=== PATIENT | male | born 1945 | race Caucasian/White ===

== ENCOUNTER → 2020-10-05 14:08 | Outpatient (BNVA) | payer MEDICARE, OTHER, SELFPAY | PROVIDERS: PCP Internal Medicine; Visit Provider Urology | DX: Z76.89 Persons encountering health services in other specified circumstances (principal) | CPT/HCPCS: Q3014 ==

== ENCOUNTER 2021-02-19 13:28 | Outpatient (REF) | payer MEDICARE, OTHER, SELFPAY ==
[2021-02-19 17:29] LABS: Blood Urea Nitrogen 19 mg/dL (9-16); Estimated Glomerular Filt Rate 56
[2021-02-19 17:52] LABS: Prostate Specific Antigen 1.16 ng/mL (<0.05-4.0)
== END 2021-02-19 13:29 | disposition home or self-care (01) ==
LOC: HO.HMGCLDS 13:28
PROVIDERS: PCP Internal Medicine; Visit Provider Urology
DX: N26.1 Atrophy of kidney (terminal) (principal); C64.9 Malignant neoplasm of unspecified kidney, except renal pelvis; N40.1 Benign prostatic hyperplasia with lower urinary tract symptoms; N13.8 Other obstructive and reflux uropathy
CPT/HCPCS: 36415; 82565; 84153; 84520

== ENCOUNTER → 2021-04-11 14:47 | Outpatient (BNVA) | payer MEDICARE, OTHER, SELFPAY | PROVIDERS: PCP Internal Medicine; Visit Provider Urology | DX: C64.9 Malignant neoplasm of unspecified kidney, except renal pelvis (principal); R39.12 Poor urinary stream; N40.1 Benign prostatic hyperplasia with lower urinary tract symptoms; N52.9 Male erectile dysfunction, unspecified; N28.9 Disorder of kidney and ureter, unspecified; N13.8 Other obstructive and reflux uropathy | CPT/HCPCS: Q3014 ==

== ENCOUNTER 2022-03-17 12:53 | Outpatient (REF) | payer MEDICARE, OTHER, SELFPAY ==
--- NOTE | ~2022-03-17 | US_ITS ---
EXAMINATION: US RETROPERITONEAL LIMITED (RENAL ONLY) CLINICAL INFORMATION: Malignant neoplasm of unspecified kidney, except renal pelvis. COMPARISON: None TECHNIQUE: Real-time imaging of the kidneys. FINDINGS: RIGHT KIDNEY: 10.1 x 6.3 x 5.9 cm (SAG x AP x TRV). The kidney is normal in size, contour, and echogenicity. Renal cortical thickness is normal. 9 mm echogenic shadowing focus within the lower pole is most consistent with a nonobstructing calculus. There is no hydronephrosis. LEFT KIDNEY: 11.2 x 5.3 x 4.5 cm (SAG x AP x TRV). The kidney is normal in size, contour, and echogenicity. Renal cortical thickness is normal. No renal calculi or hydronephrosis. 1.4 cm simple appearing exophytic midpole cyst. US/US renal BI IMPRESSION: -9 mm nonobstructing right renal calculus. No hydronephrosis.
== END 2022-03-17 12:54 | disposition home or self-care (01) ==
LOC: HO.HMGCX 12:53
PROVIDERS: Visit Provider Urology
DX: C64.9 Malignant neoplasm of unspecified kidney, except renal pelvis (principal)
CPT/HCPCS: 76775

== ENCOUNTER → 2022-04-11 14:18 | Outpatient (BNVA) | payer MEDICARE, OTHER, SELFPAY | PROVIDERS: PCP Internal Medicine; Visit Provider Urology | DX: N52.01 Erectile dysfunction due to arterial insufficiency (principal); N40.1 Benign prostatic hyperplasia with lower urinary tract symptoms; R39.12 Poor urinary stream; C64.9 Malignant neoplasm of unspecified kidney, except renal pelvis | CPT/HCPCS: 51798; 99212 ==

== ENCOUNTER 2023-04-01 08:25 | Outpatient (REF) | payer MEDICARE, OTHER, SELFPAY ==
--- NOTE | ~2023-04-01 | US_ITS ---
EXAMINATION: US RETROPERITONEAL LIMITED (RENAL ONLY) CLINICAL INFORMATION: Malignant neoplasm of unspecified kidney, status post right renal cryoablation in 2018.. COMPARISON: Renal ultrasound 03/17/2022. TECHNIQUE: Real-time imaging of the kidneys. FINDINGS: RIGHT KIDNEY: 10.2 x 5.9 x 6.4 cm (SAG x AP x TRV). The kidney is normal in size, contour, and echogenicity. Renal cortical thickness is normal. No renal calculi or hydronephrosis. 1.6 x 0.7 x 1.1 cm echogenic shadowing structure is seen in the peripheral lower pole, previously 0.9 x 0.3 x 0.6 cm. In the upper pole, 2.6 x 2.5 x 3.4 cm bulbous hypoechoic region is seen with small amount of internal vascularity.. Review of previous 2021 imaging does not reveal similar finding. LEFT KIDNEY: 12.4 x 5.7 x 5.2 cm (SAG x AP x TRV). The kidney is normal in size, contour, and echogenicity. Renal cortical thickness is normal. No renal calculi or hydronephrosis. 1.6 x 1.2 x 1.5 cm midpole exophytic cyst is seen, previously 1.4 x 1.0 x 1.3 cm. US/US renal BI IMPRESSION: 3.4 cm right upper pole hypoechoic lesion not excluded. Patient with previous history of right cryoablation 2017. Likely 1.6 cm right lower pole nonobstructing renal calculus. 1.6 cm left lower pole simple cyst. Renal protocol CT or MRI recommended.
== END 2023-04-01 08:26 | disposition home or self-care (01) ==
LOC: HO.HMGCX 08:25
PROVIDERS: PCP Internal Medicine; Visit Provider Urology
DX: C64.9 Malignant neoplasm of unspecified kidney, except renal pelvis (principal)
CPT/HCPCS: 76775

== ENCOUNTER 2023-04-14 09:31 | Outpatient (AMB) | payer MEDICARE, OTHER, SELFPAY ==
--- NOTE | 2023-04-14 09:31 | A.OFFVIS_ITS ---
Intake Intake Visit Reasons: US Follow up(SET) Intake Note: Patient is present for Follow Up Ultrasound/PVR Urology Med: Sildenafil, Tadalafil, Tamsulosin Antibiotic Allergy: None Blood Thinner: None Pharmacy: [facility] PVR: 0ML Allergies No Known Allergies Allergy (Verified 04/14/23 09:34) Medication List - Last Reconciled 04/14/23 by Jimmy Sky MD folic acid 1 mg PO DAILY methotrexate sodium 7.5 mg PO Q OTHER DAY prednisone 7.5 mg PO DAILY sildenafil 100 mg PO ONCE PRN 30 days tadalafil 10 mg PO DAILY 90 days tamsulosin 0.4 mg PO BEDTIME 90 days HPI HPI Comments History of Present Illness Details Jamie ROBERT is a very pleasant male. He is a patient of Dr Hutchinson. He is seen for the following urologic conditions - erectile dysfunction - renal lesion - lower urinary tract symptoms Twelve month follow-up Stable renal imaging 10 mg daily Cialis with 100 mg Viagra on demand Refill prescriptions Twelve month follow-up Renal cancer T1a cryotherapy November 2018: Scarring is appropriate on right kidney Small grade to cyst on left kidney Will follow with chest x-ray in 6 months and continued imaging per protocol. Imaging included 12/03 , a CT (computed tomography) scan of the abdomen/pelvis - right kidney 2 lesions 16mm and 12mm. Prior treatment(s) included Dr Ko 02/02 , cryotherapy. Staging of initial cancer T1a. The diagnosis was renal cell carcinoma. Follow up imaging includes 08/04 , abdominal CT scan, stable post intervention changes - 03/06 CT SCAN stable right side scarring Erectile dysfunction:?? Good response to Flomax Waking only once at night Has noticed that response to Viagra has started to wane Tried 200 mg but had side effects with significant headache - no longer a concern ?He presents today for for continued evaluation and management of erectile dysfunction ? - good response to medication.?Symptoms have been present for/since ongoing.?Current treatment includes Viagra/sildenafil.?Treatment side effects include none.?At this time he experiences erections are partial and adequate for vaginal penetration, that last until ejaculation, BLANKA 17-21 Mild ED.?Nocturnal erections do not occur.?Currently they are in a stable relationship.? Overall he is? Has noticed some restricted urinary urge [facility] Medical History Benign prostatic hyperplasia with lower urinary tract symptoms Erectile dysfunction Malignant neoplasm of kidney Poor urinary stream Review of Systems Const Denies chills and Denies fever(s) Card Reports no additional complaints and Denies syncope Resp Denies cough GI Denies abdominal pain and Denies heartburn Reports as per HPI and Denies change in libido Neuro Denies syncope Psych Denies change in libido Endo Denies change in libido Physical Exam Const General: cooperative, healthy appearing, comfortable and no acute distress Orientation/consciousness: patient oriented x3 HEENT Face and sinus: Yes normal facial exam Mouth: moist mucous membranes Neck Neck: Yes normal visual inspection, Yes full ROM and Yes trachea midline Chest Chest palpation & inspection: normal inspection of the chest Resp Effort & Inspection: normal respiratory effort, able to speak in complete sentences and no respiratory distress GI Inspection: Yes normal to inspection Back/Spine/Pelvis Cervical Spine: normal cervical lordosis Thoracic/Lumbar Spine: thoracic and lumbar spine normal to inspection Skin General skin exam: no rashes or lesions noted Neuro General: patient oriented x3, gait normal, tone normal and moves all extremities Extrem General: Yes normal to inspection and Yes capillary refill normal Office Procedures Post Void Residual Post Residual Void Post Void Residual (PVR): 0 05197-[id number] Void Residual by ultrasound Results AMB Urinalysis, Automated UA Leukoctes 0 Delia/uL Last Edit by MERI Metz on 04/14/23 09:38 UA Nitrite Negative Last Edit by MERI Metz on 04/14/23 09:38 UA Urobilinogen 0.2 mg/dL Last Edit by MERI Metz on 04/14/23 09:3 8 UA Protein 0 mg/dL Last Edit by MERI Metz on 04/14/23 09:38 UA pH 5.0 Last Edit by MERI Metz on 04/14/23 09:38 UA Blood 0 Sukh/uL Last Edit by MERI Metz on 04/14/23 09:38 UA Specific Murphy 1.020 Last Edit by MERI Metz on 04/14/23 09: 38 UA Ketone Negative Last Edit by MERI Metz on 04/14/23 09:38 UA Bilirubin 0 mg/dL Last Edit by DOMI MetzA on 04/14/23 09:38 UA Glucose 0 mg/dL Last Edit by DOMI MetzA on 04/14/23 09:38 Results Reviewed Results Reviewed: Laboratory Last Values Urine pH (Auto) 5.0 04/14/23 09:34 Specific Murphy (Auto) 1.020 04/14/23 09:34 Urine Protein (Auto) 0 mg/dL 04/14/23 09:34 Glucose (UA)(Auto) 0 mg/dL 04/14/23 09:34 Urine Ketones (Auto) Negative 04/14/23 09:34 Urine Blood (Auto) 0 Sukh/uL 04/14/23 09:34 Urine Nitrite (Auto) Negative 04/14/23 09:34 Urine Bilirubin (Auto) 0 mg/dL 04/14/23 09:34 Urine Urobilinogen (Auto) 0.2 mg/dL 04/14/23 09:34 Leukocyte Esterase (Auto) 0 Delia/uL 04/14/23 09:34 Assessment & Plan Assessment & Plan (1) Malignant neoplasm of kidney: Code(s): C64.9 - Malignant neoplasm of unspecified kidney, except renal pelvis (2) Erectile dysfunction: Code(s): N52.9 - Male erectile dysfunction, unspecified Plan Twelve months imaging Orders: Orders Blood Urea Nitrogen 364 Days C64.9 - Malignant neoplasm of unspecified kidney, except renal pelvis Creatinine 364 Days C64.9 - Malignant neoplasm of unspecified kidney, except renal pelvis CT abdomen w IV con 364 Days C64.9 - Malignant neoplasm of unspecified kidney, except renal pelvis AMB Urinalysis Automated Today Z13.9 - Encounter for screening, unspecified AMB Post Void Residual by ultrasound Today N40.1 - Benign prostatic hyperplasia with lower urinary tract symptoms Medications: Refilled tadalafil 10 mg PO DAILY 90 tabs 3RF sexual activity 90 days N52.01 - Erectile dysfunction due to arterial insufficiency Patient Instructions: Imaging studies, laboratory and physical exam results were discussed and reviewed in detail. No major barriers to patient understanding were identified. An opportunity to ask questions regarding the treatment plan was provided. All questions were answered. The patient expressed understanding and agreement with the above treatment plan. The patient is aware they should contact our office by phone for worsening of their current condition or the appearance of new urologic symptoms. Compliance is encouraged with any medications and followup testing that is ordered. It is a privilege to participate in the urologic care of your patient. If you have any questions or concerns regarding treatment for the above conditions, or other urologic issues, please do not hesitate to contact me. The office telephone contact is [phone]. This note is constructed using voice recognition software. While every effort has been made to ensure accuracy road sign installer errors may have been included. Yours sincerely, Dr Jimmy Sky MD, [facility] - Urology Providers of Expert, Compassionate Care for the Genitourinary System Coding Level of Care Code Est Pt Level 4 (77010) Diagnoses Malignant neoplasm of kidney C64.9 Erectile dysfunction N52.9 CPT Codes Post Residual Void - PVR CPT Code: 37094-Fqil Void Residual by ultrasound ([id number])
== END 2023-04-14 09:58 | disposition home or self-care (01) ==
PROVIDERS: PCP Internal Medicine; Visit Provider Urology
DX: C64.9 Malignant neoplasm of unspecified kidney, except renal pelvis (principal); N52.9 Male erectile dysfunction, unspecified
CPT/HCPCS: 99214

== ENCOUNTER → 2023-04-14 09:31 | Outpatient (BNVA) | payer MEDICARE, OTHER, SELFPAY | PROVIDERS: Visit Provider Urology | DX: N52.9 Male erectile dysfunction, unspecified (principal); Z85.528 Personal history of other malignant neoplasm of kidney | CPT/HCPCS: 51798; 81003; 99212 ==

== ENCOUNTER 2024-04-06 14:45 | Outpatient (REF) | payer MEDICARE, OTHER, SELFPAY ==
--- NOTE | ~2024-04-06 | CT_ITS ---
EXAMINATION: CT ABDOMEN WITHOUT AND WITH CONTRAST CLINICAL INFORMATION: Malignant neoplasm of kidney; history of right renal cryoablation in 2018. COMPARISON: Renal ultrasound dated 04/01/2023; CT abdomen dated 11/30/2018; MR abdomen dated 03/31/2018. TECHNIQUE: Contiguous axial thin section helical images of the abdomen were performed before and after the administration of oral contrast and 85 mL of Omnipaque 350 intravenous contrast. The data set was reformatted in the coronal and sagittal planes and reviewed on an independent workstation. This CT examination was performed using dose optimization techniques as appropriate, variously including the following: *Automated exposure control *Adjustment of mA and/or kV according to patient size (this includes techniques or standardized protocols for targeted exams where dose is matched to indication/reason for exam; i.e. extremities or head) *Use of iterative reconstruction technique DLP: 459 mGy-cm FINDINGS: FINDINGS: LUNG BASES: The visualized lung bases are unremarkable. There are coronary artery atherosclerotic calcifications. LIVER, GALLBLADDER, AND BILIARY TREE: The liver is normal in size, shape, and generally diminished in attenuation. No focal hepatic lesion or biliary ductal dilatation is present. The gallbladder is unremarkable with no evidence of radiopaque gallstones, gallbladder wall thickening, or obvious pericholecystic inflammatory changes. PANCREAS: Unremarkable. SPLEEN: No splenomegaly. Inferiorly within the spleen (4:70), a 2.1 cm cyst is seen, with postcontrast Hounsfield value of 12.2 units. This is stable from the MRI dated 03/31/2018 (501:23), and it is considered benign. ADRENAL GLANDS: Unremarkable. KIDNEYS AND URETERS: The kidneys are normal in size, shape, and attenuation. There are foci of scarring with coarse calcifications in the upper and lower poles of the right kidney posteriorly. These show no abnormal enhancement. There are low-attenuation bilateral renal cysts, some too small to fully characterize CT. Arising exophytically from the lower pole of the left kidney, a dominant 1.7 cm exophytic cyst is redemonstrated, consistent with ultrasound findings dated 04/01/2023 (53/55). No hydronephrosis, hydroureter, or calculi seen. No perinephric stranding. GASTROINTESTINAL TRACT: The small and large bowel are unremarkable. The appendix is not included in the [id number]. ABDOMINAL WALL: There is a very small fat-containing umbilical hernia. LYMPH NODES: Normal. VASCULAR: Unremarkable. OSSEOUS STRUCTURES: There is multi-level thoracolumbar spondylosis. There are large Schmorl's nodes of the L4 upper and lower endplates. No acute or aggressive osseous finding is noted. CT/CT abdomen wo/w IV con IMPRESSION: 1. There are right renal upper and lower pole cryoablation defects, with coarse calcifications and no abnormal enhancement to suggest residual or recurrent lesion. 2. There are benign, simple bilateral renal cysts again seen, consistent with prior ultrasound and MRI findings. 3. There is hepatic steatosis. 4. A very small fat-containing umbilical hernia is seen. 5. No aggressive osseous lesion is seen Electronically signed by: Epi Dia MD 05/04/2024 08:02 PM EDT
[2024-04-06] MEDS: iohexoL 350 MG/ML 75 ML INFUS..BTL 85 ML IV (16:20)
[2024-04-08 09:43] LABS: Creatinine POC 0.9 mg/dL (0.5-1.4); GFR POC > 60
== END 2024-04-06 14:46 | disposition home or self-care (01) ==
LOC: HO.CT 14:45
PROVIDERS: PCP Internal Medicine; Visit Provider Urology
DX: C64.9 Malignant neoplasm of unspecified kidney, except renal pelvis (principal)
CPT/HCPCS: 74170; 82565; Q9967

== ENCOUNTER 2024-04-13 09:21 | Outpatient (AMB) | payer MEDICARE, OTHER, SELFPAY ==
--- NOTE | 2024-04-13 09:30 | A.OFFVIS_ITS ---
Intake Visit Reasons: 1Y Follow Up-CT(set) Intake Note: Patient is Present for Follow Up CT Scan Urology Medication: Tamsulosin Antibiotic Allergies:None Blood Thinners: None Last PVR: 0mls Last PSA: 1.16 Medication was reviewed and patient states he is no longer on both Tadalafil and Sildenafil Recycling Specialist Required: No Accompanied by: Self / Same As Patient Allergies No Known Allergies Allergy (Verified 04/13/24 09:31) HPI Comments Details: Jamie ROBERT is a very pleasant male. He is a patient of Dr Steen. He is seen for the following urologic conditions - erectile dysfunction - renal lesion - lower urinary tract symptoms Twelve month follow-up Stable renal imaging with CT scan. Calcification of prior cryotherapy areas Does report weakness of stream. Less than 12 in excursion. Greater than 32nd void time. Trial terazosin Bladder ultrasound May need prostate intervention Renal cancer T1a cryotherapy November 2018: Imaging included 12/03 , a CT (computed tomography) scan of the abdomen/pelvis - right kidney 2 lesions 16mm and 12mm. Lower pole and upper pole Prior treatment(s) included Dr Ko 02/02 , cryotherapy. Staging of initial cancer T1a. The diagnosis was renal cell carcinoma. Follow up imaging includes 08/04 , abdominal CT scan, stable post intervention changes - 03/06 CT SCAN stable right side scarring - 04/08 Renal US 3.4 cm right upper pole hypoechoic lesion not excluded. Patient with previous history of right cryoablation 2017. Likely 1.6 cm right lower pole nonobstructing renal calculus. - 04/[address] Stable upper and lower right pole cryotherapy effect with calcification Erectile dysfunction:?? Good response to Flomax Waking only once at night Has noticed that response to Viagra has started to wane Tried 200 mg but had side effects with significant headache - no longer a concern ?He presents today for for continued evaluation and management of erectile dysfunction ? - good response to medication.?Symptoms have been present for/since ongoing.?Current treatment includes Viagra/sildenafil.?Treatment side effects include none.?At this time he experiences erections are partial and adequate for vaginal penetration, that last until ejaculation, BLANKA 17-21 Mild ED.?Nocturnal erections do not occur.?Currently they are in a stable relationship.? Overall he is? Has noticed some restricted urinary urge [facility] Medical History Poor urinary stream Benign prostatic hyperplasia with lower urinary tract symptoms Malignant neoplasm of kidney Erectile dysfunction Review of Systems Const Denies chills and Denies fever(s) Card Reports no additional complaints and Denies syncope Resp Denies cough GI Denies abdominal pain and Denies heartburn Reports as per HPI and Denies change in libido Neuro Denies syncope Psych Denies change in libido Endo Denies change in libido Physical Exam Const General: cooperative, healthy appearing, comfortable and no acute distress Orientation/consciousness: patient oriented x3 HEENT Face and sinus: Yes normal facial exam Mouth: moist mucous membranes Neck Neck: Yes normal visual inspection, Yes full ROM and Yes trachea midline Chest Chest palpation & inspection: normal inspection of the chest Resp Effort & Inspection: normal respiratory effort, able to speak in complete sentences and no respiratory distress GI Inspection: Yes normal to inspection Back/Spine/Pelvis Cervical Spine: normal cervical lordosis Thoracic/Lumbar Spine: thoracic and lumbar spine normal to inspection Skin General skin exam: no rashes or lesions noted Neuro General: patient oriented x3, gait normal, tone normal and moves all extremities Extrem General: Yes normal to inspection and Yes capillary refill normal Assessment & Plan Assessment & Plan (1) Poor urinary stream: Code(s): R39.12 - Poor urinary stream Category: Medical (2) Malignant neoplasm of kidney: Code(s): C64.9 - Malignant neoplasm of unspecified kidney, except renal pelvis Category: Medical Plan Trial terazosin Bladder ultrasound Orders: Orders CT abdomen wo/w IV con 04/06/24 C64.9 - Malignant neoplasm of unspecified kidney, except renal pelvis US bladder 2 Months R39.12 - Poor urinary stream Medications: New terazosin 5 mg PO BEDTIME 30 days 30 caps 1RF N40.1 - Benign prostatic hyperplasia with lower urinary tract symptoms, R35.0 - Frequency of micturition, R39.12 - Poor urinary stream Patient Instructions: Imaging studies, laboratory and physical exam results were discussed and reviewed in detail. No major barriers to patient understanding were identified. An opportunity to ask questions regarding the treatment plan was provided. All questions were answered. The patient expressed understanding and agreement with the above treatment plan. The patient is aware they should contact our office by phone for worsening of their current condition or the appearance of new urologic symptoms. Compliance is encouraged with any medications and followup testing that is ordered. It is a privilege to participate in the urologic care of your patient. If you have any questions or concerns regarding treatment for the above conditions, or other urologic issues, please do not hesitate to contact me. The office telephone contact is [phone]. This note is constructed using voice recognition software. While every effort has been made to ensure accuracy long filler cigar roller machine errors may have been included. Yours sincerely, Dr Jimmy Sky MD, [facility] - Urology Providers of Expert, Compassionate Care for the Genitourinary System Coding Level of Care Code Est Pt Level 4 (81898) Diagnoses Poor urinary stream R39.12 Malignant neoplasm of kidney C64.9
== END 2024-04-13 09:59 | disposition home or self-care (01) ==
PROVIDERS: PCP Internal Medicine; Visit Provider Urology
DX: R39.12 Poor urinary stream (principal); C64.9 Malignant neoplasm of unspecified kidney, except renal pelvis
CPT/HCPCS: 99214

== ENCOUNTER → 2024-04-13 09:21 | Outpatient (BNVA) | payer MEDICARE, OTHER, SELFPAY | PROVIDERS: PCP Internal Medicine; Visit Provider Urology | DX: R39.12 Poor urinary stream (principal); N52.9 Male erectile dysfunction, unspecified; C64.9 Malignant neoplasm of unspecified kidney, except renal pelvis; Z79.899 Other long term (current) drug therapy | CPT/HCPCS: 99212 ==

== ENCOUNTER 2024-06-06 11:23 | Outpatient (REF) | payer MEDICARE, OTHER, SELFPAY | END 2024-06-06 11:24 | disposition home or self-care (01) | LOC: HO.HMGCX 11:23 | PROVIDERS: PCP Internal Medicine; Visit Provider Urology | DX: R39.12 Poor urinary stream (principal) | CPT/HCPCS: 76857 ==

== ENCOUNTER 2024-06-09 08:45 | Outpatient (REF) | payer MEDICARE, OTHER, SELFPAY ==
[2024-06-09] MEDS: iohexoL 350 MG/ML 100 ML INFUS..BTL 85 ML IV (09:42)
[2024-06-10 08:16] LABS: GFR POC > 60
== END 2024-06-09 08:46 | disposition home or self-care (01) ==
LOC: HO.CT 08:45
PROVIDERS: PCP Internal Medicine; Visit Provider Urology
DX: C64.9 Malignant neoplasm of unspecified kidney, except renal pelvis (principal)
CPT/HCPCS: 74170; 82565; Q9967

== ENCOUNTER → 2024-06-09 08:47 | Outpatient (BNV) | payer MEDICARE, OTHER, SELFPAY | PROVIDERS: PCP Internal Medicine; Visit Provider Radiology Diagnostic Radiology | DX: C64.1 Malignant neoplasm of right kidney, except renal pelvis (principal) | CPT/HCPCS: 74170 ==

== ENCOUNTER 2024-06-15 11:15 | Outpatient (AMB) | payer MEDICARE, OTHER, SELFPAY ==
--- NOTE | 2024-06-14 08:45 | MHC.OFFVIS ---
Intake Visit Reasons: 2M US/CT/Med Review(Terazosin)set Intake Note: Patient is present for2M US/CT/MED REVIEW(TERAZOSIN) Urology Medication:TERAZOSIN,TMASULOSIN,SILDENAFIL,TADALAFIL Antibiotic Allergy:NONE Blood Thinner:NONE Oven Drier Tender Required: No Allergies No Known Allergies Allergy (Verified 06/14/24 08:48) [facility] Medical History Poor urinary stream Benign prostatic hyperplasia with lower urinary tract symptoms Malignant neoplasm of kidney Erectile dysfunction Coding
--- NOTE | 2024-06-15 11:10 | A.OFFVIS_ITS ---
Intake Visit Reasons: 2M US/CT/Med Review(Terazosin)set Intake Note: Patient is present for 2M US/CT/MED REVIEW Urology Medication:TERAZOSIN,TAMSULOSIN, SILDENAFIL,TADALAFIL Antibiotic Allergy:NONE Blood Thinner:NONE Oil Derrick Operator Required: No Allergies No Known Allergies Allergy (Verified 06/15/24 11:11) HPI Comments Details: Jamie ROBERT is a very pleasant male. He is a patient of Dr Steen. He is seen for the following urologic conditions - erectile dysfunction - renal lesion - lower urinary tract symptoms Telemedicine Evaluation 15 min Consultation [employer] [facility] Video Twelve month follow-up Stable renal imaging with CT scan. Calcification of prior cryotherapy areas Does report benefit with tamsulosin Baseline urinary stream Less than 12 in excursion. Greater than 30 sec void time. Bladder ultrasound 40 cc TUIP recommended - he will consider Renal cancer T1a cryotherapy November 2018: Imaging included 12/03 , a CT (computed tomography) scan of the abdomen/pelvis - right kidney 2 lesions 16mm and 12mm. Lower pole and upper pole Prior treatment(s) included Dr Ko 02/02 , cryotherapy. Staging of initial cancer T1a. The diagnosis was renal cell carcinoma. Follow up imaging includes 08/04 , abdominal CT scan, stable post intervention changes - 03/06 CT SCAN stable right side scarring - 04/08 Renal US 3.4 cm right upper pole hypoechoic lesion not excluded. Patient with previous history of right cryoablation 2017. Likely 1.6 cm right lower pole nonobstructing renal calculus. - 04/[address] scan[address] Stable upper and lower right pole cryotherapy effect with calcification Erectile dysfunction:?? Good response to Flomax Waking only once at night Has noticed that response to Viagra has started to wane Tried 200 mg but had side effects with significant headache - no longer a concern ?He presents today for for continued evaluation and management of erectile dysfunction ? - good response to medication.?Symptoms have been present for/since ongoing.?Current treatment includes Viagra/sildenafil.?Treatment side effects include none.?At this time he experiences erections are partial and adequate for vaginal penetration, that last until ejaculation, BLANKA 17-21 Mild ED.?Nocturnal erections do not occur.?Currently they are in a stable relationship.? Overall he is? Has noticed some restricted urinary urge [facility] Medical History Poor urinary stream Benign prostatic hyperplasia with lower urinary tract symptoms Malignant neoplasm of kidney Erectile dysfunction Review of Systems Const All systems reviewed & are unremarkable except as noted in HPI and below Reports no additional complaints Resp Reports no additional complaints GI Reports no additional complaints Reports as per HPI Musc Reports no additional complaints Physical Exam Telemedicine evaluation Appropriate responses Regular breathing rate and rhythm HEENT Head: Yes normal to inspection Ears: hearing grossly normal bilaterally Eyes General: appearance normal, both eyes and all related structures Neck Neck: Yes normal visual inspection Chest Chest palpation & inspection: normal inspection of the chest Resp Effort & Inspection: normal respiratory effort and able to speak in complete sentences Telehealth Telehealth Location of provider rendering services: practice address Location of patient: address on file Patient Identification confirmed using: Name, : Yes Telehealth method: voice only Patient verbally consented to treatment: Yes Patient verbally consented to billing insurance company: Yes Patient informed of any privacy concerns related to visit: Yes Assessment & Plan Assessment & Plan (1) Malignant neoplasm of kidney: Code(s): C64.9 - Malignant neoplasm of unspecified kidney, except renal pelvis Category: Medical (2) Benign prostatic hyperplasia with lower urinary tract symptoms: Code(s): N40.1 - Benign prostatic hyperplasia with lower urinary tract symptoms Category: Medical Plan Continue tamsulosin Twelve month follow-up Orders: Orders US renal BI 12 Months C64.9 - Malignant neoplasm of unspecified kidney, except renal pelvis Prostate Specific Antigen 364 Days C64.9 - Malignant neoplasm of unspecified kidney, except renal pelvis Medications: Refilled tamsulosin 0.4 mg PO BEDTIME 90 caps 3RF 90 days Discontinued terazosin Discontinued Reason: Patient Completed Course 5 mg PO BEDTIME 30 days 30 caps 1RF N40.1 - Benign prostatic hyperplasia with lower urinary tract symptoms, R35.0 - Frequency of micturition, R39.12 - Poor urinary stream Patient Instructions: Imaging studies, laboratory and physical exam results were discussed and reviewed in detail. No major barriers to patient understanding were identified. An opportunity to ask questions regarding the treatment plan was provided. All questions were answered. The patient expressed understanding and agreement with the above treatment plan. The patient is aware they should contact our office by phone for worsening of their current condition or the appearance of new urologic symptoms. Compliance is encouraged with any medications and followup testing that is ordered. It is a privilege to participate in the urologic care of your patient. If you have any questions or concerns regarding treatment for the above conditions, or other urologic issues, please do not hesitate to contact me. The office telephone contact is [phone]. This note is constructed using voice recognition software. While every effort has been made to ensure accuracy cement car dumper errors may have been included. Yours sincerely, Dr Jimmy Sky MD, [facility] - Urology Providers of Expert, Compassionate Care for the Genitourinary System Coding Level of Care Code Tele Est Pt Level 3 (98159) Diagnoses Malignant neoplasm of kidney C64.9 Benign prostatic hyperplasia with lower urinary tract symptoms N40.1
== END 2024-06-15 12:43 | disposition home or self-care (01) ==
LOC: HO.HUSH 11:15
PROVIDERS: PCP Internal Medicine; Visit Provider Urology
DX: C64.9 Malignant neoplasm of unspecified kidney, except renal pelvis (principal); N40.1 Benign prostatic hyperplasia with lower urinary tract symptoms
CPT/HCPCS: 99442

== ENCOUNTER → 2024-06-15 11:15 | Outpatient (BNVA) | payer MEDICARE, OTHER, SELFPAY | PROVIDERS: PCP Internal Medicine; Visit Provider Urology ==

== ENCOUNTER 2025-05-26 08:59 | Outpatient (REF) | payer MEDICARE, OTHER, SELFPAY ==
--- NOTE | ~2025-05-26 | US_ITS ---
CLINICAL HISTORY: C64.9 - Malignant neoplasm of unspecified kidney, except renal pelvis US Renal Comparison: US/SR - US KIDNEY BILATERAL - 04/01/2023 08:36 AM EDT Findings: Right kidney normal size and echotexture, 10.6 cm length. There is a rim calcified right renal cortical mass not significantly changed. Left kidney normal size and echotexture, 11.3 cm length. No hydronephrosis of either kidney. Normal color Doppler IMPRESSION: 1. Incompletely evaluated right renal mass, not significantly changed This document has been electronically signed by: Zaire Webb MD on 05/27/2025 08:56:26
--- OUTSIDE RECORDS SUMMARY | 2025-05-26 09:24 | XMS_ITS | Clinical Summary ---
Author Organization [facility] [address] [facility] Address [address] [place] [address] Phone Care Team Providers Care Gold Leaf Roller Name Role Phone Zaire Steen MD Primary Care Provider [phone] Allergies No known active allergies Active Problems Problem Noted Date Diagnosed Date Gastroesophageal reflux disease without esophagi tis 07/20/2024 Medical History Medical History Date Comments GERD (gastroesophageal reflux disease) Social History Tobacco Use Types Packs/Day Years Used Date Smoking Tobacco: Never Assessed Sex and Gender Information Value Date Recorded Sex Assigned at Not on file Legal Sex Male 3:26 PM EST Gender Identity Not on file Sexual Orientation Not on file Obstetrics History Last Filed Vital Signs Vital Sign Reading Time Taken Comments Blood Pressure - - Pulse - - Temperature - - Respiratory Rate - - Oxygen Saturation - - Inhaled Oxygen Concentration - - Weight 87.5 kg (193 lb) 07/07/2024 9:48 AM EST Height 182.9 cm (6') 07/07/2024 9:48 AM EST Body Mass Index 26.18 07/07/2024 9:48 AM EST Plan of Treatment Health Maintenance Due Date Last Done Comments DTaP,Tdap,and Td Vaccines (1 - Tdap) 1964 Pneumococcal Vaccine: 50+ Years (1 of 2 - PCV) 1964 Cholesterol Screening (Lipid Panel) 07/01/2024 Falls Risk Assessment 07/01/2024 Hepatitis C Screening 07/01/2024 Medicare Annual Wellness Visit 07/01/2024 Social Influencers of Health Screening 07/01/2024 Depression Screening 08/17/2024 COVID-19 Vaccine ( season) 2025 04/13/2024, 05/08/2023, 06/30/2022, Additional history exists Influenza Vaccine (#1) 2025 , 05/01/2023, 05/21/2022, Additional history exists Zoster Vaccines Completed 03/18/2022, 11/11/2021 RSV Immunization Adult Patients Completed 06/29/2023 HIB Vaccines Aged Out No longer eligi ble based on patient's age to complete this topic HPV Vaccines Aged Out No longer eligi ble based on patient's age to complete this topic Hepatitis A Vaccines Aged Out No long er eligible based on patient's age to complete this topic Hepatitis B Vaccines Aged Out No long er eligible based on patient's age to complete this topic IPV Vaccines Aged Out No longer eligi ble based on patient's age to complete this topic MMR Vaccines Aged Out No longer eligi ble based on patient's age to complete this topic Meningococcal ACWY Vaccine Aged Out N o longer eligible based on patient's age to complete this topic Meningococcal B Vaccine Aged Out No l onger eligible based on patient's age to complete this topic RSV Immunization Patients Under 20 months Aged Out No longer eligible based on patient's age to complete this topic Varicella Vaccines Aged Out No longer eligible based on patient's age to complete this topic Insurance MEDICARE [facility] Care Teams Gold Leaf Roller Relationship Specialty Start Date End Date Zaire Steen MD [address] [place] [address] PCP - General Internal Medicine 07/06/24
--- OUTSIDE RECORDS SUMMARY | 2025-05-26 09:24 | XMS_ITS | Patient Health Record ---
Author Organization [facility] Address [address] [place] [address] Care Team Providers Care Carbon Capture Power Plant Operator Name Role Phone Zaire Steen MD Primary Care Provider Efren Goodman Unavailable [phone] Allergies No Known Allergies Reason For Referral No Information Medications Medication SIG (Take, Route, Frequency, Duration) Notes Start Date End Date Status NexIUM 40 MG 1 capsule Orally Onc e a day Active Tamsulosin HCl 0.4 MG 1 capsule Orally O nce a day; Duration: 30 day(s) Active Albuterol Not-Taking Physical Therapy . . .please use US and ES and or iontophoresis 2-3x/week; Duration: 3-4 weeks 06/14/2015 Not-Taking Social History Tobacco Use: Social History Observation Description Date Details (start date - stop date) Never Smoker NA - NA Tobacco Use/Smoking Question Answer Notes Are you a: nonsmoker Additional Findings: Tobacco Non-User Current no n-smoker Tobacco use other than smoking: Question Answer Notes Are you an other tobacco user? No Problems Problem Type SNOMED Code ICD Code Onset Dates Problem Status W/U Status Risk Notes Problem Plantar wart (60501900) Plantar wart (B07.0) Active confirmed Plan Of Treatment Pending Test Test Name Order Date X ray : Foot, left 3V 04/19/2014 X ray : Foot, right 3V 04/12/2015 [id number] Destruction, 08-3001/29/2022 [id number] Destruction, 08-3003/12/2022 [id number] Destruction, 08-3005/01/2022 [id number] Destruction, 08-3006/26/2022 [id number], J0702- Neuroma/Injection 05/21/20 15 Insurance Providers Payer Name Payer Address Payer Phone Subscriber Number Group Number Insured Name Patient Relationship to Insured Coverage Start Date Coverage End Date Medicare National Govt SvDigital Reasoning [facility] [address] [place] [address] [id number] Jamie Morton Self - patient is the insured [facility] [address] [place] [address] [phone] [id number] Jamie Morton Self - patient is the insured Medical (General) History Medical History History ICD Code asthma Reflux Measles Chicken pox Mumps Cancer Warts Surgical History Surgery Date(Month/Year) Decompression ostectomy in both shoulder s [id number] PMR
== END 2025-05-26 09:00 | disposition home or self-care (01) ==
LOC: HO.HMGCX 08:59
PROVIDERS: PCP Internal Medicine; Visit Provider Urology
DX: C64.9 Malignant neoplasm of unspecified kidney, except renal pelvis (principal)
CPT/HCPCS: 76775

== ENCOUNTER → 2025-05-26 09:04 | Outpatient (BNV) | payer MEDICARE, OTHER, SELFPAY | PROVIDERS: PCP Internal Medicine; Visit Provider Specialist | DX: C64.1 Malignant neoplasm of right kidney, except renal pelvis (principal) | CPT/HCPCS: 76775 ==

== ENCOUNTER 2025-06-02 09:39 | Outpatient (REF) | payer MEDICARE, OTHER, SELFPAY ==
--- OUTSIDE RECORDS SUMMARY | 2025-06-02 11:03 | XMS_ITS | Clinical Summary ---
Author Organization [facility] Address [address] [facility] [address] [place] [address] Phone Care Team Providers Care Brass Chaser Name Role Phone Arnav Hutchinson MD Primary Care Provider [phone] Allergies No known active allergies Medications albuterol (PROVENTIL HFA;VENTOLIN HFA) 90 mcg/actuation inhaler Inhale 2 puffs into the lungs every 6 (six) hours. 07/11/2014 Active famotidine (PEPCID) 40 MG tablet Take 40 mg by mouth daily. Active Active Problems Problem Noted Date Diagnosed Date Asthma 07/11/2014 Overview (10/06/2014): Asthma Assessment & Plan (04/05/2016 9:06 AM EDT): He is doing well, with minimal symptoms. We did discuss maintenance medications. He feels that he does not need any thing more than the occasional albuterol. By mutual agreement we did not make a follow-up appointment in pulmonary here. He will return to the care of Dr. Hutchinson. I would certainly be happy to see him again as needed. Consider CXR, PFT's as needed. We previously discussed the pulmonary risks associated with his history of asbestos exposure. This may increase his risk for interstitial lung disease, pleural disease, even lung cancer. He will seek medical attention should he have any new or persistent symptoms. Asbestos exposure 07/11/2014 Overview (10/06/2014): Asbestos exposure Gastroesophageal reflux disease 07/11/2014 Overview (10/06/2014): Gastroesophageal reflux disease Environmental allergies 07/11/2014 Overview (10/06/2014): Environmental allergy Disorder of shoulder 07/11/2014 Overview (10/06/2014): Disorder of shoulder; s/p bilateral decompression osteotomy 1998 and 2000 Social History Tobacco Use Types Packs/Day Years Used Date Smoking Tobacco: Never Alcohol Use Standard Drinks/Week Comments Not Asked 0 (1 standard drink = 0.6 oz pur e alcohol) Education Answer Date Recorded Are you interested in more education? Not on darell e 12/12/2022 Are you concerned about learning? Not on file 12/12/2022 No 12/12/2022 No 12/12/2022 Digital Access Answer Date Recorded No 01/12/2023 No 01/12/2023 No 01/12/2023 Reliable internet access at home? Not on file 01/12/2023 Device with a working camera? Not on file Sex and Gender Information Value Date Recorded Sex Assigned at Not on file Legal Sex Male 2:44 PM EST Gender Identity Not on file Sexual Orientation Not on file Last Filed Vital Signs Vital Sign Reading Time Taken Comments Blood Pressure 142/87 04/03/2016 10:37 AM EDT Pulse 56 04/03/2016 10:37 AM EDT Temperature 36.1 C (97 F) 04/03/2016 10:37 AM EDT Respiratory Rate 16 04/03/2016 10:37 AM EDT Oxygen Saturation 99% 04/03/2016 10:37 AM EDT Inhaled Oxygen Concentration - - Weight 86.6 kg (191 lb) 04/03/2016 10:37 AM EDT Height 185.4 cm (6' 0.99 ) 04/03/2016 10:37 AM E DT Body Mass Index 25.2 04/03/2016 10:37 AM EDT Plan of Treatment Health Maintenance Due Date Last Done Comments Adult Td,Tdap Booster 1945 LIPID PANEL 1945 DEPRESSION SCREENING 1959 HEPATITIS C SCREENING 1965 PNEUMOCOCCAL VACCINES (50+ y ears) (1 of 2 - PCV) 1966 ZOSTER VACCINES (1 of 2) 1997 RSV VACCINE (1 - 1-dose 75+ series) 2022 INFLUENZA VACCINE (#1) 2025 COVID-19 VACCINE (2 - 2024-2 6 season) 2025 10/12/2020 SMOKING STATUS SCREENING (On ce After 26 Yrs) Completed 04/03/2016 HEPATITIS A VACCINES Aged Out No long er eligible based on patient's age to complete this topic HIB VACCINES Aged Out No longer eligi ble based on patient's age to complete this topic MENINGOCOCCAL VACCINES (ACWY) Aged Out No longer eligible based on patient's age to complete this topic MENINGOCOCCAL VACCINES (B) Aged Out N o longer eligible based on patient's age to complete this topic Medical Devices Not on file Insurance MEDICARE PART A & B [employer] MEDIC[employer] ENHANCE SUPPLEMENT MEDICARE PART A & B [id number] [place] [address] MEDICARE ENHANCE SUPPLEMENT MEDICARE PART A & B [facility] MEDICARE ENHANCE SUPPLEMENT MEDICARE PART A & B [employer] MEDICARE ENHANCE SUPPLEMENT [facility] Address[facility] [id number] [address] [id number] MEDICARE PART A & B [employer] MEDICARE ENHANCE SUPPLEMENT MEDICARE PART A & B [facility] MEDICARE ENHANCE SUPPLEMENT [facility] Address: [address] [place] [id number] MEDICARE PART A & B [facility] MEDICARE ENHANCE SUPPLEMENT [facility] Address: [facility] [id number] [place] [id number] MEDICARE PART A & B [facility] MEDICARE ENHANCE SUPPLEMENT MEDICARE PART A & B [employer] MEDICARE ENHANCE SUPPLEMENT [facility] Address: [facility] [id number] [address] [place] [id number] Care Teams Brass Chaser Relationship Specialty Start Date End Date Arnav Hutchinson MD [address] [place] [address] PCP - General Internal Medicine 06/20/14 Additional Source Comments The information contained in this document represents components of the legal health record. It is not the complete legal health record.[facility]
--- OUTSIDE RECORDS SUMMARY | 2025-06-02 11:03 | XMS_ITS | Clinical Summary ---
Author Organization [facility] [address] [facility] Address [address] [place] [address] Phone Care Team Providers Care Drapery Counselor Name Role Phone Zaire Steen MD Primary Care Provider [phone] Allergies No known active allergies Active Problems [...] age to complete this topic Insurance MEDICARE [facility] Care Teams Drapery Counselor Relationship Specialty Start Date End Date Zaire Steen MD [address] [place] [address] PCP - General Internal Medicine 07/06/24
--- OUTSIDE RECORDS SUMMARY | 2025-06-02 11:03 | XMS_ITS | Patient Health Record ---
Author Organization [facility] Address [address] [place] [address] Care Team Providers Care Commercial Solar Sales Consultant Name Role Phone Zaire Steen MD Primary Care Provider Efren Goodman Unavailable [phone] Allergies No Known Allergies Reason For Referral [...] W/U Status Risk Notes Problem Plantar wart ([id number]) Plantar wart (B07.0) Active confirmed Plan Of Treatment Pending Test Test Name Order Date X ray : Foot, left 3V 04/19/2014 X ray : Foot, right 3V 04/12/2015 [id number] Destruction, 08-3001/29/2022 [id number] Destruction, 08-3003/12/2022 [id number] Destruction, 08-3005/01/2022 [id number] Destruction, 08-3006/26/2022 [id number], J0702- Neuroma/Injection 05/21/20 15 Insurance Providers Payer Name Payer Address Payer Phone Subscriber Number Group Number Insured Name Patient Relationship to Insured Coverage Start Date Coverage End Date Medicare National Govt SvKeenSkim [facility] [address] [place] [address] [id number] Jamie Morton Self - patient is the insured [facility] [address] [place] [address] [id number] Jamie Morton Self - patient is the insured Medical (General) History Medical History History ICD Code asthma Reflux Measles Chicken pox Mumps Cancer Warts Surgical History Surgery Date(Month/Year) Decompression ostectomy in both shoulder s [id number] PMR
[2025-06-02 15:00] LABS: Prostate Specific Antigen 1.19 ng/mL (<0.05-4.0)
== END 2025-06-02 09:40 | disposition home or self-care (01) ==
LOC: HO.HMGCLDS 09:39
PROVIDERS: PCP Internal Medicine; Visit Provider Urology
DX: C64.9 Malignant neoplasm of unspecified kidney, except renal pelvis (principal); Z12.5 Encounter for screening for malignant neoplasm of prostate
CPT/HCPCS: 36415; 84153

== ENCOUNTER 2025-06-14 09:26 | Outpatient (AMB) | payer MEDICARE, OTHER, SELFPAY ==
--- NOTE | 2025-06-14 09:43 | MHC.OFFVIS ---
Intake Visit Reasons: 1y/US/PSA Intake Note: Patient is Present for Follow Up Ultrasound/PSA Urology Medication: Tamsulosin Antibiotic Allergies:None Blood Thinners: Blood Thinners No longer taking Sildenafil and Tadalafil Patient states he is only on Tamsulosin. Last PVR: 0ml Todays PVR: 0ml Group Product Manager Required: No Accompanied by: Self / Same As Patient Allergies No Known Allergies Allergy (Verified 06/14/25 09:48) HPI Comments Details: Jamie ROBERT is a very pleasant male. He is a patient of Dr Steen. He is seen for the following urologic conditions - erectile dysfunction - renal lesion - lower urinary tract symptoms Yearly follow-up Stable renal imaging with CT scan. Calcification of prior cryotherapy areas Does report benefit with tamsulosin Baseline urinary stream less than 12 in excursion. Greater than 30 sec void time. Bladder ultrasound 40 cc Again we discussed TURP Has come off erectile medications. No longer necessary Renal cancer T1a cryotherapy November 2018: Imaging included 12/03 , a CT (computed tomography) scan of the abdomen/pelvis - right kidney 2 lesions 16mm and 12mm. Lower pole and upper pole Prior treatment(s) included Dr Ko 02/02 , cryotherapy. Staging of initial cancer T1a. The diagnosis was renal cell carcinoma. Follow up imaging includes 08/04 , abdominal CT scan, stable post intervention changes - 03/06 CT SCAN stable right side scarring - 04/08 Renal US 3.4 cm right upper pole hypoechoic lesion not excluded. Patient with previous history of right cryoablation 2017. Likely 1.6 cm right lower pole nonobstructing renal calculus. - 04/[address] scan[address] Stable upper and lower right pole cryotherapy effect with calcification [facility] Medical History Poor urinary stream Benign prostatic hyperplasia with lower urinary tract symptoms Malignant neoplasm of kidney Erectile dysfunction Review of Systems Const Denies chills and Denies fever(s) Card Reports no additional complaints and Denies syncope Resp Denies cough GI Denies abdominal pain and Denies heartburn Reports as per HPI and Denies change in libido Neuro Denies syncope Psych Denies change in libido Endo Denies change in libido Physical Exam Const General: cooperative, healthy appearing, comfortable and no acute distress Orientation/consciousness: patient oriented x3 HEENT Face and sinus: Yes normal facial exam Mouth: moist mucous membranes Neck Neck: Yes normal visual inspection, Yes full ROM and Yes trachea midline Chest Chest palpation & inspection: normal inspection of the chest Resp Effort & Inspection: normal respiratory effort, able to speak in complete sentences and no respiratory distress GI Inspection: Yes normal to inspection Back/Spine/Pelvis Cervical Spine: normal cervical lordosis Thoracic/Lumbar Spine: thoracic and lumbar spine normal to inspection Skin General skin exam: no rashes or lesions noted Neuro General: patient oriented x3, gait normal, tone normal and moves all extremities Extrem General: Yes normal to inspection and Yes capillary refill normal Office Procedures Post Void Residual Post Residual Void Post Void Residual (PVR): 0 [id number] Void Residual by ultrasound Assessment & Plan Assessment & Plan (1) Malignant neoplasm of kidney: Code(s): C64.9 - Malignant neoplasm of unspecified kidney, except renal pelvis Category: Medical (2) Benign prostatic hyperplasia with lower urinary tract symptoms: Code(s): N40.1 - Benign prostatic hyperplasia with lower urinary tract symptoms Category: Medical Plan Twelve month follow-up renal ultrasound Continue tamsulosin Orders: Orders AMB Post Void Residual by ultrasound Today N40.1 - Benign prostatic hyperplasia with lower urinary tract symptoms US renal BI 12 Months C64.9 - Malignant neoplasm of unspecified kidney, except renal pelvis Medications: Refilled tamsulosin 0.4 mg PO BEDTIME 90 caps 3RF 90 days C64.9 - Malignant neoplasm of unspecified kidney, except renal pelvis Patient Instructions: This note is constructed using voice recognition software. While every effort has been made to ensure accuracy track service person errors may have been included. Imaging studies, laboratory and physical exam results were discussed and reviewed in detail. No major barriers to patient understanding were identified. An opportunity to ask questions regarding the treatment plan was provided. All questions were answered. The patient expressed understanding and agreement with the above treatment plan. The patient is aware they should contact our office by phone for worsening of their current condition or the appearance of new urologic symptoms. Compliance is encouraged with any medications and followup testing that is ordered. It is a privilege to participate in the urologic care of your patient. If you have any questions or concerns regarding treatment for the above conditions, or other urologic issues, please do not hesitate to contact me. The office telephone contact is [phone]. Sincerely, Dr Jimmy Sky MD, [facility] - Urology Compassionate Specialist Care for the Genitourinary System Coding Level of Care Code Est Pt Level 4 (01519) Complex EM visit Add On G2211 Diagnoses Malignant neoplasm of kidney C64.9 Benign prostatic hyperplasia with lower urinary tract symptoms N40.1 CPT Codes Post Residual Void - PVR CPT Code: 00304-Qavj Void Residual by ultrasound ([id number])
--- OUTSIDE RECORDS SUMMARY | 2025-06-14 11:06 | XMS_ITS | Clinical Summary ---
Author Organization [facility] [address] [facility] Address [address] [place] [address] Phone Care Team Providers Care Gold Marker Name Role Phone Zaire Steen MD Primary Care Provider [phone] Allergies No known active allergies Active Problems [...] age to complete this topic Insurance MEDICARE [facility] Care Teams Gold Marker Relationship Specialty Start Date End Date Zaire Steen MD [address] [place] [address] PCP - General Internal Medicine 07/06/24
--- OUTSIDE RECORDS SUMMARY | 2025-06-14 11:08 | XMS_ITS | Clinical Summary ---
Author Organization [facility] Address [address] [facility] [address] [place] [address] Phone Care Team Providers Care Vehicle Dismantler Name Role Phone Arnav Hutchinson MD Primary Care Provider [phone] Allergies No known active allergies Medications albuterol [...] ENHANCE SUPPLEMENT MEDICARE PART A & B [id number] [place] [address] MEDICARE ENHANCE SUPPLEMENT MEDICARE PART A & B [facility] MEDICARE ENHANCE SUPPLEMENT MEDICARE PART A & B [facility] MEDICARE ENHANCE SUPPLEMENT [facility] Address: [facility] [id number] [place] [id number] MEDICARE PART A & B [place] MEDICARE ENHANCE SUPPLEMENT MEDICARE PART A & B [facility] MEDICARE ENHANCE SUPPLEMENT [facility] Address: [address] [place] [id number] MEDICARE PART A & B [facility] MEDICARE ENHANCE SUPPLEMENT [facility] Address: [facility] [id number] [place] [id number] MEDICARE PART A & B [facility] MEDICARE ENHANCE SUPPLEMENT MEDICARE PART A & B [facility] MEDICARE ENHANCE SUPPLEMENT [facility] Address: [facility] [id number] [place] [id number] Care Teams Vehicle Dismantler Relationship Specialty Start Date End Date Arnav Hutchinson MD [address] [place] [address] PCP - General Internal Medicine 06/20/14 Additional Source Comments The information contained in this document represents components of the legal health record. It is not the complete legal health record.[facility]
--- OUTSIDE RECORDS SUMMARY | 2025-06-14 11:08 | XMS_ITS | Patient Health Record ---
Author Organization [facility] Address [address] [place] [address] Care Team Providers Care Machine Hamper Maker Name Role Phone Zaire Steen MD Primary Care Provider Efren Goodman Unavailable [phone] Allergies No Known Allergies Reason For Referral [...] W/U Status Risk Notes Problem Plantar wart (25070961) Plantar wart (B07.0) Active confirmed Plan Of Treatment Pending Test Test Name Order Date X ray : Foot, left 3V 04/19/2014 X ray : Foot, right 3V 04/12/2015 [id number]-Htdx Destruction, 08-3001/29/2022 [id number]-Uirt Destruction, 08-3003/12/2022 [id number]-Pjnj Destruction, 08-3005/01/2022 63075-Cqow Destruction, 08-3006/26/2022 11398, J0702- Neuroma/Injection 05/21/20 15 Insurance Providers Payer Name Payer Address Payer Phone Subscriber Number Group Number Insured Name Patient Relationship to Insured Coverage Start Date Coverage End Date Medicare National Govt [employer] [facility] [address] [place] [address] [id number] Jamie Morton Self - patient is the insured [facility] [address] [place] [address] [phone] [id number] Jamie Morton Self - patient is the insured Medical (General) History Medical History History ICD Code asthma Reflux Measles Chicken pox Mumps Cancer Warts Surgical History Surgery Date(Month/Year) Decompression ostectomy in both shoulder s [id number] PMR
== END 2025-06-14 10:17 | disposition home or self-care (01) ==
LOC: HO.HUSH 09:27
PROVIDERS: PCP Internal Medicine; Visit Provider Urology
DX: C64.1 Malignant neoplasm of right kidney, except renal pelvis (principal); N40.1 Benign prostatic hyperplasia with lower urinary tract symptoms
CPT/HCPCS: 99214

== ENCOUNTER → 2025-06-14 09:26 | Outpatient (BNVA) | payer MEDICARE, OTHER, SELFPAY | PROVIDERS: PCP Internal Medicine; Visit Provider Urology | DX: N40.1 Benign prostatic hyperplasia with lower urinary tract symptoms (principal); R39.12 Poor urinary stream; C64.9 Malignant neoplasm of unspecified kidney, except renal pelvis | CPT/HCPCS: 51798; 99212 ==